=== PATIENT | male | born 1975 | race Caucasian/White ===

== ENCOUNTER 2022-08-10 11:56 | Emergency (ER) | payer MEDICAID ==
[~2022-08-10] VITALS: Ht 165.1 cm; Wt 53.1 kg
[2022-08-10 12:02] VITALS: BP 132/72
[2022-08-10] MEDS ORDERED: CARB15DR61 OT (13:08)
[2022-08-10 13:23] VITALS: BP 111/76
--- NOTE | 2022-08-10 13:23 | NUR ---
Patient discharged with v/s stable. Written and verbal after care instructions given. Patient alert, oriented and verbalized understanding of instructions. Ambulatory with steady gait. All questions addressed prior to discharge. ID band removed. Patient advised to follow up with PMD. Rx of Debrox given. Opportunity to ask questions provided and answered.
== END 2022-08-10 13:23 | disposition home or self-care (01) ==
LOC: MED 11:56
DX: T16.2XXA Foreign body in left ear, initial encounter (principal); X58.XXXA Exposure to other specified factors, initial encounter; Y93.89 Activity, other specified; Y92.89 Other specified places as the place of occurrence of the external cause; Y99.8 Other external cause status
CPT/HCPCS: 99282